=== PATIENT | female | born 1945 | race Two or more races ===

== ENCOUNTER 2017-12-08 11:35 | Outpatient (CLI) | payer OTHER ==
[~2017-12-08 11:35] MED LIST: CALTRATE 600600 MG; COZAAR25 MG; METOPROLOL SUCC25 MG; NABUMETONE750 MG PO; SULINDAC200 MG; VASOFLEX TABLET1 TAB
== END 2017-12-08 11:40 | disposition home or self-care (01) ==
LOC: SONOGRAMA 11:35
DX: M25.511 Pain in right shoulder (principal)

== ENCOUNTER 2018-10-15 11:40 | Emergency (ER) | payer OTHER ==
[~2018-10-15] VITALS: Ht 160 cm; Wt 98.4 kg
[2018-10-15] MEDS ORDERED: TOPROL XL25 M1 (12:43)
[2018-10-15] MEDS ORDERED: GABAPENTIN100 MG (12:43)
[2018-10-15] MEDS ORDERED: BETAMETHASONE V60 ML (12:44)
[2018-10-15] MEDS ORDERED: VENALIV CAPLET1 EACH (12:44)
[2018-10-15] MEDS ORDERED: COZAAR100 MG (12:44)
[2018-10-15] MEDS ORDERED: FORTAMET500 MG (12:45)
[2018-10-15] MEDS ORDERED: PEPCID20 MG (12:45)
[2018-10-15] MEDS ORDERED: INTESTINEX680 M1 PO (18:19)
[2018-10-15] MEDS ORDERED: DOXYCYCLINE HY100 MG PO (18:19)
[2018-10-15] MEDS ORDERED: ULTRACET PO (18:19)
== END 2018-10-15 18:52 | disposition home or self-care (01) ==
LOC: ER 11:40
DX: L03.115 Cellulitis of right lower limb (principal); I89.0 Lymphedema, not elsewhere classified

== ENCOUNTER → 2019-01-28 10:26 | Outpatient (CLI) | payer OTHER ==
[~2019-01-28 10:26] MED LIST changes: +BETAMETHASONE V60 ML; +COZAAR100 MG; +DOXYCYCLINE HY100 MG PO; +FORTAMET500 MG; +GABAPENTIN100 MG; +INTESTINEX680 M1 PO; +PEPCID20 MG; +TOPROL XL25 M1; +ULTRACET PO; +VENALIV CAPLET1 EACH
== END | disposition home or self-care (01) ==
LOC: LAB 08:44
DX: I10 Essential (primary) hypertension (principal); E11.9 Type 2 diabetes mellitus without complications; E03.8 Other specified hypothyroidism; E78.2 Mixed hyperlipidemia; Z12.11 Encounter for screening for malignant neoplasm of colon

== ENCOUNTER 2019-01-28 10:42 | Outpatient (CLI) | payer OTHER | END 2019-01-28 10:46 | disposition home or self-care (01) | LOC: RAD 10:42 → MAMO-SONO 11:15 | DX: Z12.31 Encounter for screening mammogram for malignant neoplasm of breast (principal); Z87.898 Personal history of other specified conditions; J44.9 Chronic obstructive pulmonary disease, unspecified; N60.11 Diffuse cystic mastopathy of right breast; N60.12 Diffuse cystic mastopathy of left breast; Z09 Encounter for follow-up examination after completed treatment for conditions other than malignant neoplasm ==

== ENCOUNTER 2019-01-28 11:24 | Outpatient (CLI) | payer OTHER | END 2019-01-28 13:11 | disposition home or self-care (01) | LOC: NUCLEAR 11:24 | DX: I11.0 Hypertensive heart disease with heart failure (principal); J44.9 Chronic obstructive pulmonary disease, unspecified; M81.0 Age-related osteoporosis without current pathological fracture; I87.2 Venous insufficiency (chronic) (peripheral) ==

== ENCOUNTER 2019-05-25 09:30 | Outpatient (CLI) | payer OTHER | END 2019-05-25 09:36 | disposition home or self-care (01) | LOC: LAB 09:30 | DX: E11.9 Type 2 diabetes mellitus without complications (principal); E03.8 Other specified hypothyroidism; I10 Essential (primary) hypertension; E78.2 Mixed hyperlipidemia ==

== ENCOUNTER 2019-06-07 09:50 | Outpatient (CLI) | payer OTHER | END 2019-06-07 14:59 | disposition home or self-care (01) | LOC: TOM 09:50 | DX: R51 Headache (principal); R41.2 Retrograde amnesia ==

== ENCOUNTER 2019-06-07 11:11 | Outpatient (CLI) | payer OTHER | END 2019-06-07 11:16 | disposition home or self-care (01) | LOC: LAB 11:11 | DX: N39.0 Urinary tract infection, site not specified (principal) ==

== ENCOUNTER 2019-10-01 08:29 | Outpatient (CLI) | payer OTHER | END 2019-10-01 08:40 | disposition home or self-care (01) | LOC: LAB 08:29 | PROVIDERS: ATTEND Internal Medicine Cardiovascular Disease | DX: E11.9 Type 2 diabetes mellitus without complications (principal); I10 Essential (primary) hypertension; E03.8 Other specified hypothyroidism; E78.2 Mixed hyperlipidemia; Z12.11 Encounter for screening for malignant neoplasm of colon ==

== ENCOUNTER 2019-10-05 09:58 | Outpatient (CLI) | payer OTHER | END 2019-10-05 10:02 | disposition home or self-care (01) | LOC: LAB 09:58 | PROVIDERS: ATTEND Internal Medicine Cardiovascular Disease | DX: E03.8 Other specified hypothyroidism (principal); I10 Essential (primary) hypertension; E11.9 Type 2 diabetes mellitus without complications; E78.2 Mixed hyperlipidemia; Z12.11 Encounter for screening for malignant neoplasm of colon ==

== ENCOUNTER → 2019-11-04 | Outpatient (CLI) | payer OTHER | END | disposition home or self-care (01) | LOC: MAMO-SONO 10:20 | PROVIDERS: ATTEND Internal Medicine Cardiovascular Disease | DX: M12.861 Other specific arthropathies, not elsewhere classified, right knee (principal); M12.862 Other specific arthropathies, not elsewhere classified, left knee ==

== ENCOUNTER 2019-11-10 09:50 | Outpatient (CLI) | payer OTHER | END 2019-11-10 09:52 | disposition home or self-care (01) | LOC: SONOGRAMA 09:50 | PROVIDERS: ATTEND Internal Medicine Cardiovascular Disease | DX: M12.862 Other specific arthropathies, not elsewhere classified, left knee (principal) ==

== ENCOUNTER → 2020-01-04 09:22 | Outpatient (CLI) | payer OTHER | END | disposition home or self-care (01) | LOC: LAB 09:22 | PROVIDERS: ATTEND Internal Medicine Cardiovascular Disease | DX: E03.8 Other specified hypothyroidism (principal); I10 Essential (primary) hypertension; E11.9 Type 2 diabetes mellitus without complications; E78.2 Mixed hyperlipidemia ==

== ENCOUNTER 2020-05-19 09:28 | Outpatient (CLI) | payer OTHER | END 2020-05-19 09:40 | disposition home or self-care (01) | LOC: LAB 09:28 | PROVIDERS: ATTEND Internal Medicine Cardiovascular Disease | DX: E03.8 Other specified hypothyroidism (principal); I10 Essential (primary) hypertension; E11.9 Type 2 diabetes mellitus without complications; E78.2 Mixed hyperlipidemia; N39.0 Urinary tract infection, site not specified ==

== ENCOUNTER → 2020-10-03 09:23 | Outpatient (CLI) | payer OTHER | END | disposition home or self-care (01) | LOC: LAB 09:23 | PROVIDERS: ATTEND Internal Medicine Cardiovascular Disease | DX: E78.2 Mixed hyperlipidemia (principal); I10 Essential (primary) hypertension; E11.9 Type 2 diabetes mellitus without complications; E03.9 Hypothyroidism, unspecified; Z12.11 Encounter for screening for malignant neoplasm of colon; E55.9 Vitamin D deficiency, unspecified ==

== ENCOUNTER 2021-08-15 10:46 | Emergency (ER) | payer OTHER ==
[~2021-08-15] VITALS: Ht 149.9 cm; Wt 99.8 kg
== END 2021-08-15 13:51 | disposition home or self-care (01) ==
LOC: ER 10:46
DX: S80.02XA Contusion of left knee, initial encounter (principal); S70.02XA Contusion of left hip, initial encounter; W06.XXXA Fall from bed, initial encounter; Y93.9 Activity, unspecified; Y92.013 Bedroom of single-family (private) house as the place of occurrence of the external cause; Y99.9 Unspecified external cause status; E11.9 Type 2 diabetes mellitus without complications; I10 Essential (primary) hypertension; Z91.013 Allergy to seafood

== ENCOUNTER → 2021-10-26 12:00 | Outpatient (CLI) | payer OTHER | END | disposition home or self-care (01) | LOC: TOM 12:00 | PROVIDERS: ATTEND Internal Medicine Cardiovascular Disease | DX: R51.9 Headache, unspecified (principal) ==

== ENCOUNTER → 2022-06-17 09:04 | Outpatient (CLI) | payer OTHER | END | disposition home or self-care (01) | LOC: LAB 09:04 | DX: N18.30 Chronic kidney disease, stage 3 unspecified (principal) ==

== ENCOUNTER 2022-06-19 09:33 | Outpatient (CLI) | payer OTHER | END 2022-06-19 09:37 | disposition home or self-care (01) | LOC: SONOGRAMA 09:33 | DX: N28.89 Other specified disorders of kidney and ureter (principal) ==

== ENCOUNTER 2024-01-22 10:10 | Outpatient (CLI) | payer OTHER | END 2024-01-22 10:22 | disposition home or self-care (01) | LOC: TOM 10:10 | DX: R10.9 Unspecified abdominal pain (principal) ==

== ENCOUNTER 2024-07-25 20:49 | Inpatient (IN) | payer OTHER ==
[~2024-07-25] VITALS: Ht 157.5 cm; Wt 72.6 kg
[2024-07-25] MEDS ORDERED: PEPCID AC20 MG (21:15)
[2024-07-25] MEDS ORDERED: SULINDAC200 MG PO (21:15)
[2024-07-25] MEDS ORDERED: SIMVASTATIN80 MG (21:16)
[2024-07-25] MEDS ORDERED: GLUMETZA500 MG PO (21:16)
[2024-07-25] MEDS ORDERED: DULOXETINE HCL60 MG (21:16)
[2024-07-25] MEDS ORDERED: HORIZANT300 MG (21:16)
[2024-07-25] MEDS ORDERED: FARXIGA10 MG PO (21:16)
[2024-07-25] MEDS ORDERED: LOSARTAN POTASS50 MG PO (21:17)
[2024-07-25 22:24] LABS: HEMATOCRIT 37.7 % (36.0-45.00); HEMOGLOBIN 12.7 g/dL (12.0-15.00); MEAN CELL VOLUME 88.9 fL (80.00-100.00); MEAN CORPUSCULAR HGB CONC 33.8 g/dl (32.0-36.0); PLATELET COUNT 201 K/uL (150-450); RED BLOOD COUNT 4.25 M/uL (4.00-6.00); RED CELL DISTRIBUTION WIDTH 13.7 % (11.5-14.5)
[2024-07-25 22:53] LABS: ALBUMIN 3.4 gm/dL (3.4-5.0); BILIRUBIN TOTAL 0.37 mg/dL (0.3-1.2); CALCIUM 9.7 mg/dL (8.5-10.1); CREATININE SERUM 1.71 mg/dL (0.55-1.02); GFR 28.72; GLOBULINA 4.3 G/DL (2.4-3.5); POTASSIUM 4.56 mEq/L (3.5-5.1); TOTAL PROTEIN 7.7 gm/dL (6.4-8.2)
[2024-07-25 23:38] LABS: PH,URINE 5.5 (5.0-8.0); URINE APPEARANCE Clear; URINE BILIRRUBIN Negative (NEGATIVE); URINE BLOOD Negative; URINE COLOR Yellow; URINE KETONE Negative (NEGATIVE); URINE LEUKOCYTE Trace; URINE NITRATE Negative; URINE PROTEIN 30 (NEGATIVE); URINE UROBILINOGEN 0.2 E.U./dl
[2024-07-25 23:42] LABS: URINE EPITHELIAL CELLS 52.5 uL (0.0-38.8); URINE WBC 82.7 uL (0.0-23.2)
[2024-07-25 23:44] LABS: URINE CAST 1.32 uL (0.0-1.40); URINE GLUCOSE >=1000 MG/DL (NEGATIVE); URINE RBC 1.9 uL (0.0-20.8)
[2024-07-26] MEDS ORDERED: KETOROLAC TROMETHAMINE 60 MG VIAL IM STA (03:20)
[2024-07-26] MEDS ORDERED: KETOROLAC TROMETHAMINE 60 MG VIAL IM ONE (03:24)
[2024-07-26] MEDS ORDERED: 0.9 % SODIUM CHLORIDE 1,000 ML IV ONE (03:30)
[2024-07-26] MEDS ORDERED: 0.9 % SODIUM CHLORIDE 1,000 ML IV SCH (17:15)
[2024-07-26] MEDS ORDERED: ENOXAPARIN SODIUM 30 MG/0.3 ML SYRINGE SUBCUTANEO SCH (17:18)
[2024-07-26] MEDS ORDERED: CEFTRIAXONE SODIUM 2,000 MG in 0.9 % SODIUM CHLORIDE 100 ML IV SCH (17:20)
[2024-07-26] MEDS ORDERED: INSULIN LISPRO 1,000 UNIT/10 ML UNITS SUBCUTANEO PRN (17:30)
[2024-07-26] MEDS ORDERED: ACETAMINOPHEN 500 MG GEL..CAP PO PRN (17:30)
[2024-07-26] MEDS ORDERED: DEXTROSE 50 % IN WATER 0.5 G/ML DISP.SYRIN IV PRN (17:30)
[2024-07-26] MEDS ORDERED: CEFTRIAXONE SODIUM 2,000 MG VIAL ONE (17:38)
[2024-07-26 19:10] VITALS: BP 177/78
[2024-07-26] MEDS ORDERED: hydrALAZINE HCL 20 MG VIAL IV PRN (19:30)
[2024-07-26] MEDS ORDERED: SODIUM CHLORIDE 0.45 % 1,000 ML IV SCH (19:30)
[2024-07-26 21:38] VITALS: O2SAT 98
[2024-07-27 01:24] VITALS: O2SAT 96
[2024-07-27 02:36] VITALS: BP 137/56; O2SAT 98
[2024-07-27 03:47] LABS: INR 1.13; PROTHROMBIN TIME 12.2 SECONDS (9.0-11.5)
[2024-07-27 03:59] LABS: CHOL HDL RATIO 2.8 (0-5.0); TSH 1.34 uIU/mL (0.358-3.74)
[2024-07-27 05:36] VITALS: O2SAT 95
[2024-07-27 08:54] VITALS: BP 137/66; O2SAT 96
[2024-07-27] MEDS ORDERED: AMLODIPINE BESYLATE 10 MG TABLET PO SCH (09:00)
[2024-07-27] MEDS ORDERED: GABAPENTIN 100 MG CAPSULE PO SCH (09:00)
[2024-07-27] MEDS ORDERED: FAMOTIDINE/PF 20 MG in 0.9 % SODIUM CHLORIDE 8 ML IV PUSH SCH (09:00)
[2024-07-27] MEDS ORDERED: Duloxetine HCl 30 MG CAPSULE.DR PO SCH (09:00)
[2024-07-27] MEDS ORDERED: LOSARTAN POTASSIUM 50 MG TABLET PO SCH (09:00)
[2024-07-27 14:31] VITALS: O2SAT 98
[2024-07-27 17:00] VITALS: BP 157/84; O2SAT 98
[2024-07-27] MEDS ORDERED: INSULIN LISPRO 1,000 UNIT/10 ML UNITS SUBCUTANEO PRN (17:00)
[2024-07-27] MEDS ORDERED: SIMVASTATIN 40 MG TABLET PO SCH (17:00)
[2024-07-28] VITALS (8 sets, daily range): BP systolic 115–158; BP diastolic 69–80; O2SAT 90–99
[2024-07-28 08:59] LABS: HEMATOCRIT 38.5 % (36.0-45.00); HEMOGLOBIN 13.1 g/dL (12.0-15.00); MEAN CELL VOLUME 88.8 fL (80.00-100.00); MEAN CORPUSCULAR HEMOGLOBIN 30.3 pg (27.00-32.0); MEAN CORPUSCULAR HGB CONC 34.1 g/dl (32.0-36.0); PLATELET COUNT 196 K/uL (150-450); RED BLOOD COUNT 4.34 M/uL (4.00-6.00); RED CELL DISTRIBUTION WIDTH 13.7 % (11.5-14.5)
[2024-07-28] MEDS ORDERED: FARXIGA 10 MG PO SCH (09:00)
[2024-07-28 18:19] LABS: PH,URINE 5.5 (5.0-8.0); URINE APPEARANCE Clear; URINE BILIRRUBIN Negative (NEGATIVE); URINE BLOOD Negative; URINE COLOR Yellow; URINE KETONE Negative (NEGATIVE); URINE LEUKOCYTE Negative; URINE NITRATE Negative; URINE PROTEIN 30 (NEGATIVE); URINE UROBILINOGEN 0.2 E.U./dl
[2024-07-28 18:20] LABS: URINE EPITHELIAL CELLS 2.2 uL (0.0-38.8)
[2024-07-28 18:35] LABS: URINE BACTERIA 3.6 uL (0.0-1933); URINE CAST 0.29 uL (0.0-1.40); URINE GLUCOSE >=1000 MG/DL (NEGATIVE); URINE RBC 0.4 uL (0.0-20.8); URINE WBC 0.9 uL (0.0-23.2)
== END 2024-07-28 19:49 | disposition home or self-care (01) | DRG 690 ==
LOC: ER 20:49 → MEDJ 07-26 17:49 → SEC-K 07-26 17:49 → MEDJ 07-26 19:07
PROVIDERS: Emergency Medicine; General Practice; Internal Medicine Infectious Disease; ADMIT Specialist; ATTEND Specialist
PROC: B020ZZZ Computerized Tomography (CT Scan) of Brain (ICD-10-PCS; 2024-07-25)
PROC: B030ZZZ Magnetic Resonance Imaging (MRI) of Brain (ICD-10-PCS; principal; 2024-07-26)
PROC: 4A12X4Z Monitoring of Cardiac Electrical Activity, External Approach (ICD-10-PCS; 2024-07-26)
PROC: B345ZZZ Ultrasonography of Bilateral Common Carotid Arteries (ICD-10-PCS; 2024-07-26)
PROC: B348ZZZ Ultrasonography of Bilateral Internal Carotid Arteries (ICD-10-PCS; 2024-07-26)
PROC: B54DZZZ Ultrasonography of Bilateral Lower Extremity Veins (ICD-10-PCS; 2024-07-26)
PROC: B246ZZZ Ultrasonography of Right and Left Heart (ICD-10-PCS; 2024-07-26)
DX: N39.0 Urinary tract infection, site not specified (principal); N17.9 Acute kidney failure, unspecified; R55 Syncope and collapse; G31.89 Other specified degenerative diseases of nervous system; I12.9 Hypertensive chronic kidney disease with stage 1 through stage 4 chronic kidney disease, or unspecified chronic kidney disease; E11.22 Type 2 diabetes mellitus with diabetic chronic kidney disease; E11.51 Type 2 diabetes mellitus with diabetic peripheral angiopathy without gangrene; N18.32 Chronic kidney disease, stage 3b; E78.5 Hyperlipidemia, unspecified; Z79.84 Long term (current) use of oral hypoglycemic drugs
CPT/HCPCS: 70544

== ENCOUNTER 2024-10-22 07:09 | Outpatient (CLI) | payer OTHER ==
[~2024-10-22 07:09] MED LIST changes: +DULOXETINE HCL60 MG; +FARXIGA10 MG PO; +GLUMETZA500 MG PO; +HORIZANT300 MG; +LOSARTAN POTASS50 MG PO; +PEPCID AC20 MG; +SIMVASTATIN80 MG; +SULINDAC200 MG PO
== END 2024-10-22 07:11 | disposition home or self-care (01) ==
LOC: NUCLEAR 07:09
PROVIDERS: ATTEND Internal Medicine
DX: I20.9 Angina pectoris, unspecified (principal)
CPT/HCPCS: 78452; 93017; A9500; J0153

== ENCOUNTER 2024-10-24 13:04 | Emergency (ER) | payer OTHER ==
[~2024-10-24] VITALS: Ht 149.9 cm; Wt 88.5 kg
[2024-10-24] MEDS ORDERED: ORPHENADRINE CITRATE 30 MG/ML AMPUL ONE (14:58)
[2024-10-24] MEDS ORDERED: ACETAMINOPHEN 500 MG GEL..CAP PO ONE ×2 (14:59→15:00)
[2024-10-24] MEDS ORDERED: ORPHENADRINE CITRATE 30 MG/ML AMPUL IM ONE (15:00)
[2024-10-24] MEDS ORDERED: TYLENOL ARTHRI650 MG PO (19:03)
== END 2024-10-24 19:15 ==
LOC: ER 13:09
DX: S09.8XXA Other specified injuries of head, initial encounter (principal); S89.92XA Unspecified injury of left lower leg, initial encounter; S02.2XXA Fracture of nasal bones, initial encounter for closed fracture; W19.XXXA Unspecified fall, initial encounter; Y93.89 Activity, other specified; Y92.098 Other place in other non-institutional residence as the place of occurrence of the external cause; Y99.8 Other external cause status; I10 Essential (primary) hypertension; E11.9 Type 2 diabetes mellitus without complications; Z79.84 Long term (current) use of oral hypoglycemic drugs; Z88.6 Allergy status to analgesic agent
CPT/HCPCS: 70486; 71111; 73521; 73565; 96372; 99284; J2360

== ENCOUNTER 2024-11-04 09:48 | Outpatient (CLI) | payer OTHER ==
[~2024-11-04 09:48] MED LIST changes: +TYLENOL ARTHRI650 MG PO
== END 2024-11-04 09:49 | disposition home or self-care (01) ==
LOC: NUCLEAR 09:48
DX: I82.453 Acute embolism and thrombosis of peroneal vein, bilateral (principal); I82.452 Acute embolism and thrombosis of left peroneal vein

== ENCOUNTER 2024-11-08 09:26 | Outpatient (CLI) | payer OTHER | END 2024-11-08 09:27 | disposition home or self-care (01) | LOC: NUCLEAR 09:26 | PROVIDERS: ATTEND Orthopaedic Surgery | DX: M81.0 Age-related osteoporosis without current pathological fracture (principal) ==

== ENCOUNTER 2024-12-09 07:51 | Outpatient (CLI) | payer OTHER ==
[2024-12-09 09:07] LABS: ALT/SGPT 22.0 U/L (12-78); AST/SGOT 16.0 U/L (15-37); BILIRUBIN TOTAL 0.53 mg/dL (0.3-1.2); BUN CREA RATIO 22.0 (7.0-25.0); CREATININE SERUM 1.37 mg/dL (0.55-1.02); GFR 37.1; GLOBULINA 4.6 G/DL (2.4-3.5); GLUCOSE FASTING 149.0 mg/dL (65-100); OSMOLALITY SERUM 292.0 MOSM/KG (275-295)
[2024-12-10 11:12] LABS: CALCIUM IONIZED 5.2 mg/dL (4.5-5.6)
== END 2024-12-09 07:56 | disposition home or self-care (01) ==
LOC: LAB 07:51
PROVIDERS: ATTEND Orthopaedic Surgery
DX: E55.9 Vitamin D deficiency, unspecified (principal); M85.9 Disorder of bone density and structure, unspecified; E56.1 Deficiency of vitamin K; E21.3 Hyperparathyroidism, unspecified; M81.8 Other osteoporosis without current pathological fracture; E88.9 Metabolic disorder, unspecified

== ENCOUNTER 2024-12-09 10:39 | Outpatient (CLI) | payer OTHER | END 2024-12-09 10:41 | disposition home or self-care (01) | LOC: RAD 10:39 | PROVIDERS: ATTEND Orthopaedic Surgery | DX: M24.561 Contracture, right knee (principal); Z96.651 Presence of right artificial knee joint ==

== ENCOUNTER → 2025-03-07 08:45 | Outpatient (CLI) | payer OTHER ==
[2025-03-07 10:01] LABS: BASO % 0.4 % (0.1-1.2); EOS # 0.15 (0.04-0.54); EOS % 1.5 % (0.7-7.0); LYMPH # 2.26 (1.18-3.74); LYMPH % 22.7 % (19.3-53.1); MEAN PLATELET VOLUME 12.20 fl (9.4-12.4); MONO # 0.49 (0.24-0.82); MONO % 4.9 % (4.7-12.5); NEUT # 6.98 (1.56-6.13); NEUT % 70.3 % (34.0-71.1); RED CELL DISTRIBUTION WIDTH 12.7 % (11.6-14.4)
[2025-03-07 10:06] LABS: ERYTHROCYTE SEDIMENTATION RATE 16 mm/hr (0-30)
[2025-03-07 10:20] LABS: INR 1.1
[2025-03-07 10:38] LABS: URINE APPEARANCE Clear; URINE BACTERIA 45.5 uL (0.0-1933); URINE BILIRRUBIN Negative (NEGATIVE); URINE BLOOD Negative; URINE COLOR Yellow; URINE EPITHELIAL CELLS 11.9 uL (0.0-38.8); URINE KETONE Negative (NEGATIVE); URINE LEUKOCYTE Negative; URINE NITRATE Negative; URINE UROBILINOGEN 0.2 E.U./dl; URINE WBC 5.8 uL (0.0-23.2)
[2025-03-07 10:45] LABS: URINE CAST 0.43 uL (0.0-1.40); URINE GLUCOSE >=1000 MG/DL (NEGATIVE); URINE PROTEIN 100 (NEGATIVE); URINE RBC 0.7 uL (0.0-20.8)
[2025-03-07 11:11] LABS: CHOL HDL RATIO 2.6 (0-5.0); HDL 72.0 mg/dl (40-60); LDL 98.0 mg/dl (0-130); T4 FREE 1.38 NG/ML (0.76-1.46); TSH 2.06 uIU/mL (0.358-3.74); VLDL 16.0 (0-39)
== END | disposition home or self-care (01) ==
LOC: LAB 08:45
PROVIDERS: ATTEND Specialist
DX: E03.9 Hypothyroidism, unspecified (principal); N39.9 Disorder of urinary system, unspecified; E78.2 Mixed hyperlipidemia; E11.65 Type 2 diabetes mellitus with hyperglycemia; D64.9 Anemia, unspecified; J45.998 Other asthma; D68.8 Other specified coagulation defects; N39.0 Urinary tract infection, site not specified; M35.3 Polymyalgia rheumatica